=== PATIENT | female | born 1975 | race Hispanic/Latino ===

== ENCOUNTER 2023-08-28 19:27 | Emergency (ER) | payer OTHER, SELFPAY ==
--- NOTE | ~2023-08-28 | CT_ITS ---
EXAMINATION: CT abdomen pelvis w con DATE: 08/28/2023 21:00 INDICATION: luq pain TECHNIQUE: Computed tomography (CT) of the abdomen and pelvis was performed with 100 mL Omnipaque-350 intravenous contrast. Automated exposure control and iterative reconstruction technique were employe d. The dose-length product was 521.48 mGy-cm. COMPARISON: None. FINDINGS: Lower thorax: Unremarkable Liver: Normal. Biliary/Gallbladder: Gallbladder is normal. No bile duct dilation. Pancreas: No mass or duct dilation. Spleen: Normal. Adrenals:No mass. Kidneys: No suspicious mass, obstructing stone, or hydronephrosis. GI tract: Moderate distal esophageal edema. No small or large bowel dilation. Status post appendectom y. Mesentery/Peritoneum: No ascites, mass, or free air. Retroperitoneum: No mass. Pelvis: Normal urinary bladder. Normal ovaries. Multiple uterine fibroids. Soft Tissues: Soft tissues and body wall unremarkable. Bones: No acute osseous finding. IMPRESSION: Moderate esophagitis. Otherwise, no acute abdominopelvic process detected. Reviewed, dictated and finalized at location K. ORK ANNOUNCER
[2023-08-28 19:37] VITALS: BP 154/95; PULSE 75; RESP 16; TEMP 36.5; O2SAT 100
[2023-08-28 20:00] LABS: Basophils Absolute Auto 0.1 K/mm3 (0.0-0.1); Basophils Percent Auto 1.2 % (0.2-1.2); Eosinophils Absolute Auto 0.1 K/mm3 (0-0.3); Eosinophils Percent Auto 0.9 % (0-4.4); Hematocrit 34.2 % (37.0-47.0); Hemoglobin 10.6 g/dL (12.0-15.0); Immature Granulocyte Absolute 0.02 K/mm3 (0.00-0.031); Immature Granulocyte Percent A 0.2 % (0-0.5); Lymphocytes Absolute Auto 3.68 K/mm3 (0.9-3.2); Lymphocytes Percent Auto 42.4 % (18.3-44.2); Mean Corpuscular Hemoglobin 24.9 pg (26-34); Mean Corpuscular Volume 80.5 fl (80-100); Monocytes Absolute Auto 0.6 K/mm3 (0.1-0.6); Monocytes Percent Auto 6.5 % (2.6-8.5); Neutrophils Absolute Auto 4.2 K/mm3 (1.3-6.7); Neutrophils Percent Auto 48.8 % (45.5-73.1); Platelet Count Result 333 k/mm3 (150-375); Red Blood Count 4.25 M/mm3 (4.2-5.4); Red Cell Distribution Width 14.2 % (11.5-14.5); White Blood Count 8.7 K/mm3 (4.5-10.0)
[2023-08-28 20:13] LABS: Alanine Aminotransferase 26 U/L (6-35); Albumin Level 4.5 g/dL (3.5-5.1); Alkaline Phosphatase 65 U/L (38-126); Anion Gap 7 mmol/L (8-16); Aspartate Amino Transferase 26 U/L (14-36); Bilirubin,Total 0.2 mg/dL (0.2-1.3); Blood Urea Nitrogen 14 mg/dL (7-17); Calcium 9.2 mg/dL (8.4-10.2); Carbon Dioxide 28 mmol/L (22-30); Chloride 103 mmol/L (98-107); Estimated CRCL calculation 77 ml/min; Estimated Glomerular Filt Rate > 60; Glucose 121 mg/dL (65-110); Lipase 164 U/L (23-300); Potassium 3.5 mmol/L (3.4-5.0); Sodium 138 mmol/L (137-145)
[2023-08-28 20:19] LABS: Appearance Urine Cloudy (Clear); Bacteria Urine None Seen /hpf; Bilirubin Urine Negative (Negative); Blood Urine 2+ (Negative); Color Urine Yellow (Yellow); Glucose Urine UA Negative (Negative); Ketones Urine Negative (Negative); Leukocyte Esterase Ur Negative LEU/UL (Negative); Nitrate Urine Negative (Negative); Non Pathogenic Casts 0-2; Protein Urine Negative (Negative); RBC Urine 21-50 /hpf (0-2); Specific Grav Ur 1.012 (1.001-1.035); Squamous Epithelial Cell Urine Occasional /hpf (Few); Urobilinogen Urine 0.2 mg/dL (<2.0); WBC Urine 0-5 /hpf; pH Urine 8.5 (5.0-9.0)
[2023-08-28 20:21] LABS: Add Urine Microscopic? YES
--- NOTE | 2023-08-28 21:46 | ED.ABDPAIN ---
HPI - Abdominal Pain General Chief Complaint: Abdominal Pain Stated Complaint: Abdominal pain, thyroid in cancer Time Seen by Provider: 08/28/23 20:29 Source: patient and family Mode of arrival: ambulatory Limitations: no limitations History of Present Illness HPI narrative: 48-year-old with a history thyroid cancer, here with a complaint left upper quadrant pain for last several days. She denies any nausea or vomiting. Family reports her spleen was enlarged calcified thyroid cancer and they were worried what could be a rupture MD elicited complaint: abdominal pain Pertinent past history: none Onset (ago): week(s) (2) Pain Consistency: constant Location: LUQ Severity: moderate Quality: aching Radiation: none Migration to: no migration Exacerbating factors: nothing Relieving factors: nothing Associated symptoms: denies other symptoms Related Data Patient : No Allergies Allergy/AdvReac Type Severity Reaction Status Date / Time No Known Allergies Allergy Verified 08/28/23 19:45 Review of Systems Review of Systems: All systems reviewed & are unremarkable except as noted in HPI and below Constitutional: Constitutional: Reports no additional constitutional complaints Eyes: Eyes: Reports no additional eye complaints ENT: Reports system reviewed and no additional complaints, except as documented Cardiovascular: Cardiovascular: Reports no additional cardiovascular complaints Respiratory: Respiratory: Reports no additional respiratory complaints Gastrointestinal: Gastrointestinal: Reports as per HPI Genitourinary: Genitourinary: Reports no additional female genitourinary complaints Musculoskeletal: Musculoskeletal: Reports no additional musculoskeletal complaints Integumentary/Breasts: Skin/Breast: Reports system reviewed and no additional complaints, except as docu Neurologic: Reports system reviewed and no additional complaints, except as documented Exam Narrative: GENERAL: Well-appearing, well-nourished, and in no acute distress. HEAD: Normocephalic, atraumatic. EYES: PERRLA and EOMI. NECK: Supple. CHEST: Clear to auscultation. No respiratory distress. HEART: Regular rate and rhythm. No murmur heard. Normal peripheral pulses. ABDOMEN: Soft, tender in left upper quadrant, nondistended, normal active bowel sounds. EXTREMITIES: Normal range of motion. No edema. SKIN: Warm, dry, no rash. NEURO: No focal deficits. Alert and oriented x3. PSYCH: Normal mood and affect. Course Course Emergency Course: notified patient and the family about her lab work. Advised to take medication as prescribed, follow-up with the GI doctor Vital Signs Vital signs: Vital Signs Temperature 36.5 C 08/28/23 19:37 Pulse Rate 75 08/28/23 19:37 Respiratory Rate 16 08/28/23 19:37 Blood Pressure 154/95 H 08/28/23 19:37 Pulse Oximetry 100 08/28/23 19:37 Oxygen Delivery Room Air 08/28/23 19:37 Temperature 36.5 C 08/28/23 19:37 Pulse Rate 75 08/28/23 19:37 Respiratory Rate 16 08/28/23 19:37 Blood Pressure 154/95 H 08/28/23 19:37 Pulse Oximetry 100 08/28/23 19:37 Oxygen Delivery Room Air 08/28/23 19:37 MDM - Abdominal Pain Differential Diagnosis Differential diagnosis: Likely abdominal pain, constipation, diverticulitis, pancreatitis and small bowel obstruction Medical Records Attestation: I reviewed the patient's medical records. Lab Data 08/28/23 19:53 08/28/23 19:53 Labs: Lab Results 08/28/23 Range/Units 19:53 WBC 8.7 (4.5-10.0) K/mm3 RBC 4.25 (4.2-5.4) M/mm3 Hgb 10.6 L (12.0-15.0) g/dL Hct 34.2 L (37.0-47.0) % MCV 80.5 (80-100) fl MCH 24.9 L (26-34) pg MCHC 31.0 L (32-36) g/dl RDW 14.2 (11.5-14.5) % Plt Count 333 (150-375) k/mm3 MPV 10.0 (7.4-10.4) fl Immature Gran % (Auto) 0.2 (0-0.5) % Neut % (Auto) 48.8 (45.5-73.1) % Lymph % (Auto) 42.4 (18.3-44.2) % [place] % (Auto) 6.5 (2.6-8
[2023-08-28] MEDS: FAMOTIDINE 20 MG/2 ML VIAL IV PUSH (21:57)
[2023-08-28] MEDS: MORPHINE SULFATE (*CRX) 4 MG/ML INJ IV PUSH (21:57)
[2023-08-28] MEDS: ONDANSETRON INJ 4 MG/2 ML VIAL IV PUSH (21:57)
[2023-08-28 22:08] VITALS: BP 145/86; PULSE 70; RESP 17; O2SAT 100
== END 2023-08-28 22:12 | disposition home or self-care (01) ==
PROVIDERS: Emergency Medicine; Emergency Provider Family Medicine
DX: K20.90 Esophagitis, unspecified without bleeding (principal); Z85.850 Personal history of malignant neoplasm of thyroid
CPT/HCPCS: 36415; 74177; 80053; 81001; 81025; 83690; 85025; 96374; 96375; 99284; J2270; J2405; Q9967

== ENCOUNTER 2025-04-03 12:46 | Emergency (ER) | payer SELFPAY ==
--- OUTSIDE RECORDS SUMMARY | 2020-06-21 07:25 | XMS_ITS | Continuity of Care Document ---
Author Organization [facility] Address [address] [place] [address] Phone Care Team Providers Care Tire Trimmer Hand Name Role Phone Unavailable Unavailable Unavailable Advance Directives Directive Yes / No Effective Date File Name No Information Encounters Encounter Description Practice Location Reason(s) For Visit Diagnoses Date Provider Providers Copied on Encounter [facility] , [address], [place], [place], [id number], [place] tel:[phone] [facility] On [facility] No Information No Information Family History Family Member Type Diagnosis Age At Onset No Information Payers Payer name Insurance type Covered libertarian ID Authoriza tion(s) No Information Social History Type Description Quantity Date Captured Comments Sex Female Smoking Status No Information Chief Complaint And Reason For Visit No Information Reason For Referral Reason For Referral No Information History Of Present Illness Encounter Date Complaint History Of Prese nt Illness No Information Functional Status Date Functional Assessmen t No Information Instructions Date Instruction Additional Infor mation No Information Assessments Type Assessment Date No Information Patient Care Teams Name Effective Dates (start - stop) Status Members No Information
--- NOTE | ~2025-04-03 | CT_ITS ---
EXAMINATION: CT lumbar spine wo con DATE: 04/03/2025 14:24 INDICATION: Low back pain TECHNIQUE: Computed tomography (CT) of the lumbar spine was performed without intravenous contrast. The dose-length product was 478.61 mGy-cm. Automated exposure control and iterative reconstruction technique were employed. COMPARISON: None FINDINGS: Normal lumbar alignment. Vertebral bodies and disc heights are preserved. Mild dextrocurvature of the lumbar spine. No focal lytic or blastic lesions. There is mild facet degenerative change at L5-S1. No significant paraspinal soft tissue abnormality. There are changes of appendectomy. No sig nificant spinal stenosis. IMPRESSION: 1. No acute abnormality of the lumbar spine. Reviewed, dictated and finalized at location O.
[2025-04-03 12:51] VITALS: BP 147/101; PULSE 77; RESP 18; TEMP 36.9; O2SAT 100
--- NOTE | 2025-04-03 13:35 | ED_ITS ---
HPI - Back Pain/Injury General Chief Complaint: Extremity Problem,Nontraumatic Stated Complaint: bilateral hip pain, radiates down legs Time Seen by Provider: 04/03/25 12:51 History of Present Illness HPI Narrative: Patient is a 49-year-old female who presents to the ER with left-sided back pain that radiates down her left thigh. She reports the pain started on , 1 week ago. Patient denies any saddle anesthesia, loss of continence, or urinary symptoms. She endorses a history of thyroid cancer x2 in fibromyalgia. Patient denies any recent back injury. She endorses tingling in her left thigh and pain radiating around her left hip. Related Data Allergies Allergy/AdvReac Type Severity Reaction Status Date / Time aspirin AdvReac Intermediate Vomiting Verified 04/03/25 12:54 Review of Systems Review of Systems: All systems reviewed & are unremarkable except as noted in HPI and below Exam Narrative: GENERAL: Well appearing, well-nourished, non-toxic, in no acute distress. HEAD: Normocephalic, atraumatic. NECK: Supple. No adenopathy, no masses. RESPIRATORY: Airway patent, respirations nonlabored. Clear to auscultation bilaterally, no rales, rhonchi, wheezing. CARDIOVASCULAR: Regular rate and rhythm without murmurs, rubs, or gallops. Peripheral pulses 2+ and equal bilaterally. -CVA tenderness ABDOMINAL: Soft, nontender, nondistended, no hepatosplenomegaly. Normoactive BS. MUSCULOSKELETAL: Moves all extremities. Strength/ROM intact without gross deformities. + straight leg test SKIN: Warm, dry, normal color. No rashes. NEURO: A&O X3. Speech clear. Cranial nerves II-XII intact. No ataxic movements. PSYCHIATRIC: Appropriate mood and affect. Normal interaction. Course Vital Signs Vital signs: Vital Signs Temperature 36.9 C 04/03/25 12:51 Pulse Rate 77 04/03/25 12:51 Respiratory Rate 18 04/03/25 12:51 Blood Pressure 147/101 H 04/03/25 12:51 Pulse Oximetry 100 04/03/25 12:51 Temperature 36.9 C 04/03/25 12:51 Pulse Rate 77 04/03/25 12:51 Respiratory Rate 18 04/03/25 12:51 Blood Pressure 147/101 H 04/03/25 12:51 Pulse Oximetry 100 04/03/25 12:51 MDM - Back Pain/Injury MDM Narrative Medical decision making narrative: Patient is a 49-year-old female who presents to the ER with left-sided back pain that radiates down her left thigh. She reports the pain started on , 1 week ago. Patient denies any saddle anesthesia, loss of continence, or urinary symptoms. She endorses a history of thyroid cancer x2 in fibromyalgia. Patient denies any recent back injury. She endorses tingling in her left thigh and pain radiating around her left hip. Labs Ordered: UA Imaging Ordered: CT lumbar spine Medications Ordered: Prednisone 40 mg p.o., Toradol 60 mg IM, Bactrim p.o. Results: Patient's CT scan indicates No acute abnormality of the lumbar spine. Diagnosis: Urinary tract infection, sciatica Patient Education/Shared MDM: Results of lab work and imaging shared with francis ent. She endorses improvement of symptoms following medication administration. Patient strongly advised to maintain hydration status upon discharge and follow- up with her PCP as soon as possible. She will be discharged home with a prescription for Bactrim and lidocaine. Strict return precautions provided. Patient verbalized understanding and is in agreement with plan. Vital signs stable at time of discharge. All questions answered. Differential Diagnosis Differential diagnosis: Likely lumbar radiculopathy, sciatica, strain of lumbar region and other (Urinary tract infection) Lab Data Attestation: I reviewed the patient's lab results. Labs: Lab Results 04/03/25 Range/Units 14:08 Urine Color Yellow (Yellow) Urine Appearance Cloudy H (Clear) Urine pH 6.5 (5.0-9.0) Ur Specific [place] 1.011 (1.001-1.035) Urine Protein Negative (Negative) mg/dL Urine Glucose (UA) Negative (Negative) mg/dL Urine Ketones Negative (Negative) mg/dL Ur Blood (Man) 2+ H (Negative) Urine Nitrate Negative (Negative) Urine Bilirubin Negative (Negative) Urine Urobilinogen 0.2 (<2.0) mg/dL Leukocyte Esterase Rfl 3+ H (Negative) BAYRON/UL Urine RBC 3-5 H (0-2) /hpf Urine WBC 51-100 H (0-3) /hpf Ur Squamous Epith Cells Occasional (Few) /hpf Urine Bacteria 1+ H /hpf Urine Casts 0-2 Imaging Data Attestation: I personally reviewed and interpreted this imaging study as follows: Radiologist's impression: Impressions Lumbar Spine CT 04/03/25 14:32 IMPRESSION: 1. No acute abnormality of the lumbar spine. Discharge Plan Discharge Clinical Impression: Sciatica of left side, Urinary tract infection Patient Disposition: Home Condition: Stable Instructions: Antibiotic Form, Urinary Tract Infection in Women (ED), Lower Back Exercises (ED) Additional Instructions: Please return to the ER with any worsening symptoms. Follow-up with primary care provider as soon as possible. Take all medications as prescribed, including regularly scheduled medications. Complete your full dose of antibiotics. You may use lidocaine patches, Tylenol and ibuprofen for pain relief. Patient Language: Urdu Prescriptions: New lidocaine 5 % adhesive patch,medicated 2 patch topical DAILY Qty: 30 0RF Rx Instructions: leave on most painful area for up to 12 hrs ibuprofen 800 mg tablet 800 mg PO TID Qty: 20 0RF prednisone 50 mg tablet 50 mg PO DAILY Qty: 5 0RF sulfamethoxazole-trimethoprim [Bactrim DS] 800-160 mg tablet 1 tablet PO Q12H 5 Days Qty: 10 0RF No Action esomeprazole magnesium [Nexium] 40 mg capsule,delayed release(DR/EC) 40 mg PO DAILY Qty: 30 0RF hydrocodone-acetaminophen 5-325 mg tablet 1 tablet PO Q8H PRN (Reason: pain) Qty: 14 0RF Follow-up/Referrals: Eamon Rowland MD [Physician, Family Practice] Referral Note: primary care provider UNKNOWN,DOCTOR [Primary Care Provider] Time of Disposition: 15:42
[2025-04-03] MEDS: KETOROLAC (*BKC) 60 MG/2 ML VIAL IM (13:56)
--- OUTSIDE RECORDS SUMMARY | 2025-04-03 14:23 | XMS_ITS | Continuity of Care Document ---
Author Name Dmitry Souza Address [address] [place], [place] [id number] [place] [address] Organization Unknown Address [address] [place] [address] Medications No known medications Problems No known problems
--- OUTSIDE RECORDS SUMMARY | 2025-04-03 14:24 | XMS_ITS | Encounter Summary ---
Author Organization [facility] Address [address] [place] [address] Phone Care Team Providers Care Art Class Model Name Role Phone Chris Hebert MD Unavailable [phone] Moustapha Restrepo MD Primary Care Provider Connie Castro MD Unavailable Dorys Gunter MD Unavailable Stephan Hinton DO Unavailable [phone] Aram Lo MD Unavailable Kate Poole NP Unavailable Virgil Riddle MD Unavailable Johana Uribe MD PhD Unavailable Luis Krause MD Unavailable [phone] Encounter Details Date Type Department Care Team (Late st Contact Info) Description 10/12/2018 Social Work 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 Gender Identity Not on file Sexual Orientation Straight 05/07/2024 1: 18 PM CDT documented as of this encounter Plan of Treatment Not on file documented as of this encounter Visit Diagnoses Not on filedocumented in this encounter Care Teams Art Class Model Relationship Specialty Start Date End Date Moustapha Restrepo MD [address] [place] [address] PCP - General Internal Medicine 06/13/18 Chris Hebert MD [address] [place] [address] Consulting Physician Medical Oncology 07/23/17 04/13/21 [place] [address] [address] Consulting Physician Endocrinology Diabetes & Metabolism 01/20/19 06/11/19 [place] [address] [address] Consulting Physician Radiation Oncology 01/20/19 [place] [address] [address] Surgeon Otolaryngology 01/20/19 06/11/19 [place] [address] [address] Consulting Physician Gastroenterology 01/20/19 [place] [address] [place] [id number] Nurse Practitioner Otolaryngology 06/12/19 04/14/21 [place] [address] [address] Consulting Physician Otolaryngology 10/12/20 02/19/22 [place]ribe [place] PhD [address] [id number] Medical Oncologist/Hematologi st Medical Oncology 04/14/21 03/14/22 [place] [address] [address] Consulting Physician Radiation Oncology 04/14/21 documented as of this encounter
--- OUTSIDE RECORDS SUMMARY | 2025-04-03 14:24 | XMS_ITS | Encounter Summary ---
Author Organization [facility] Address [address] [place] [address] Phone Care Team Providers Care Roofer Apprentice Name Role Phone Chris Hebert MD Unavailable [phone] Moustapha Restrepo MD Primary Care Provider Moustapha Restrepo MD Primary Care Provider [phone] Connie Castro MD Unavailable Dorys Gunter MD Unavailable Stephan Hinton DO Unavailable Aram Lo MD Unavailable [phone] Kate Poole NP Unavailable Virgil Riddle MD Unavailable Johana Uribe MD PhD Unavailable [phone] Luis Krause MD Unavailable [phone] Encounter Details Date Type Department Care Team (Late st Contact Info) Description 01/03/2018 Social Work [facility] Oncology [address] [address] Stacey Judd, [address] 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 Sex: female (home) Address: [address] [place], [place] [id number] PCP: Moustapha Restrepo Received a call from [employer] reporting they need an updated application for the patient. Per rep, the initial application was denied due to incorrect primary diagnosis. SW updated and corrected application and sent to [employer]. I will remain available to assist as needed. MEL Holliday documented in this encounter Plan of Treatment Not on file documented as of this encounter Visit Diagnoses Not on filedocumented in this encounter Care Teams Roofer Apprentice Relationship Specialty Start Date End Date Moustapha Restrepo MD [address] [place] [address] PCP - General Internal Medicine 11/23/17 06/12/18 Moustapha Restrepo MD [address] [place] [address] PCP - General Internal Medicine 06/13/18 Chris Hebert MD [address] [place] [address] Consulting Physician Medical Oncology 07/23/17 04/13/21 [place] [address] [address] Consulting Physician Endocrinology Diabetes & Metabolism 01/20/19 06/11/19 [place] [address] [address] Consulting Physician Radiation Oncology 01/20/19 [place] [address] [address] Surgeon Otolaryngology 01/20/19 06/11/19 [place] [address] [address] Consulting Physician Gastroenterology 01/20/19 Kate Poole, VIJAYA [address] [address] Nurse Practitioner Otolaryngology 06/12/19 04/14/21 [place] [address] [address] Consulting Physician Otolaryngology 10/12/20 02/19/22 Johana Uribe [place] PhD [address] [address] Medical Oncologist/Hematologi st Medical Oncology 04/14/21 03/14/22 [place] [address] [place] [address] Consulting Physician Radiation Oncology 04/14/21 documented as of this encounter
--- OUTSIDE RECORDS SUMMARY | 2025-04-03 14:24 | XMS_ITS | Encounter Summary ---
Author Organization [facility] Address [address] [place] [address] Care Team Providers Care Size Changer Name Role Phone Moustapha Restrepo MD Primary Care Provider [phone] Aram Lo MD Unavailable [phone] Encounter Details Date Type Department Care Team (Late st Contact Info) Description 05/16/2024 Orders Only [facility] Information Management [address] [place] [address] Scanning, Provider Social History Tobacco Use Types Packs/Day Years Used Date Smoking Tobacco: Never Smokeless Tobacco: Never Alcohol Use Standard Drinks/Week Comments No 0 (1 standard drink = 0.6 oz pur e alcohol) AUDIT-C Answer Date Recorded Q1: How often do you have a drink containing alcohol? Never 05/07/2024 Q2: How many drinks containi ng alcohol do you have on a typical day when you are drinking? Patient does not drink Q3: How often do you have si x or more drinks on one occasion? Never 05/07/2024 PHQ-2 Answer Date Recorded PHQ-2 Total Score (If total score is 3 or more points, staff should administer the PHQ-9) 0 05/07/2024 Hunger Vital Sign Answer Date Recorded Within the past 12 months, y ou worried that your food would run out before you got the money to buy more. Never true 04/27/20 23 Within the past 12 months, t he food you bought just didn't last and you didn't have money to get more. Never true 11/17/2022 PHQ-9 Answer Date Recorded PHQ-9 Total Score 0 05/07/2024 Personal Safety Answer Date Recorded Have you ever been in or are you currently in a harmful physical or emotional relationship or is someone making you feel afraid or unsafe? 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 Gender Identity Not on file Sexual Orientation Straight 05/07/2024 1: 18 PM CDT documented as of this encounter Plan of Treatment Not on file documented as of this encounter Procedures Procedure Name Priority Date/Time Associated Diagnosis Comments SCAN - OTHER ORDERS 05/16/2024 documented in this encounter Results * SCAN - OTHER ORDERS (05/16/2024) us Provider Scanning Final Result documented in this encounter Visit Diagnoses Not on filedocumented in this encounter Care Teams Size Changer Relationship Specialty Start Date End Date Moustapha Restrepo MD [address] [place] [address] PCP - General Internal Medicine 06/13/18 Aram Lo MD [address] [place] [address] Consulting Physician Gastroenterology 01/20/19 documented as of this encounter
--- OUTSIDE RECORDS SUMMARY | 2025-04-03 14:24 | XMS_ITS | Encounter Summary ---
Author Organization [facility] Address [address] [place] [address] Phone Care Team Providers Care Chief Catalyst Operator Name Role Phone Chris Hebert MD Unavailable [phone] Moustapha Restrepo MD Primary Care Provider Moustapha Restrepo MD Primary Care Provider Connie Castro MD Unavailable Dorys Gunter MD Unavailable Stephan Hinton DO Unavailable Aram Lo MD Unavailable Kate Poole NP Unavailable Virgil Riddle MD Unavailable Johana Uribe MD PhD Unavailable Luis Krause MD Unavailable [phone] Encounter Details Date Type Department Care Team (Late st Contact Info) Description 06/05/2018 Social Work [facility] Oncology [address] [facility] [address] [place] [address] Stacey Judd, [address] 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 Sex: female (home) Address: [address] [place], [place] [address] PCP: Moustapha Restrepo chute worker followed up to determine if patient is still on Rituxan to determine if she will needto renew her medication assistance. I will remain available to assist as needed. MEL Holliday AGENT documented in this encounter Plan of Treatment Not on file documented as of this encounter Visit Diagnoses Not on filedocumented in this encounter Care Teams Chief Catalyst Operator Relationship Specialty Start Date End Date Moustapha Restrepo MD [address] [place] [address] PCP - General Internal Medicine 11/23/17 06/12/18 Moustapha Restrepo MD [address] [place] [address] PCP - General Internal Medicine 06/13/18 Chris Hebert MD [address] [place] [address] Consulting Physician Medical Oncology 07/23/17 04/13/21 [place] [address] [address] Consulting Physician Endocrinology Diabetes & Metabolism 01/20/19 06/11/19 [place] [address] [address] Consulting Physician Radiation Oncology 01/20/19 [place] [address] [address] Surgeon Otolaryngology 01/20/19 06/11/19 [place] [address] [address] Consulting Physician Gastroenterology 01/20/19 Kate Poole, VIJAYA [address] [place] [address] Nurse Practitioner Otolaryngology 06/12/19 04/14/21 [place] [address] [address] Consulting Physician Otolaryngology 10/12/20 02/19/22 [place] [address] [address] Medical Oncologist/Hematologi st Medical Oncology 04/14/21 03/14/22 [place] [address] [address] Consulting Physician Radiation Oncology 04/14/21 documented as of this encounter
--- OUTSIDE RECORDS SUMMARY | 2025-04-03 14:24 | XMS_ITS | Clinical Summary ---
Author Organization [facility] Address [address] [place] [id number] Care Team Providers Care Billing Control Clerk Name Role Phone Moustapha Restrepo MD Primary Care Provider [phone] Aram Lo MD Unavailable [phone] Allergies No known active allergies Medications SUMAtriptan (IMITREX) 50 mg tablet TAKE ONE TABLET BY MOUTH AT START OF HEADACHE MAY REPEAT ONCE IN 2 HOURS NO MORE THAN 2 TABS IN ONE DAY 1 Active sulfamethoxazole-tr imethoprim (BACTRIM DS) 800-160 mg per tablet Take 1 tablet by mouth 2 (two) times a day 3 Active acetaminophen (TYLENOL) 500 mg tablet Take 1 tablet (500 mg total) by mouth every 6 (six) hours as needed for pain Active pregabalin (LYRICA) 75 mg capsuleIndications: Postoperative hypothyroidism Take 1 capsule (75 mg total) by mouth 2 (two) times a day 60 capsule 4 4 Active levothyroxine (SYNTHROID) 150 mcg tablet Take 1 tablet (150 mcg total) by mouth daily 90 tablet 3 4 Active Active Problems Problem Noted Date Diagnosed Date History of thyroid cancer 05/07/2024 Assessment & Plan (05/07/2024 1:52 PM CDT): Without any evidence of recurrent Update tumor marker with TG Paralabral cyst of shoulder, right, initial enco unter 02/10/2023 Iron deficiency anemia 04/29/2020 Overview (04/29/2020): Added automatically from request for surgery [id number] Epistaxis 02/15/2019 Assessment & Plan (02/15/2019 12:55 PM CDT): Patient was noted to have a benign-appearing sore along the inferior edge of her right inferior turbinate. Silver nitrate cautery was performed today. Bleeding stopped. Nasal hygiene care instructions were discussed with the patient and her daughter. Patient can follow back up as needed. Enlarged lymph node in neck 06/01/2018 Immune thrombocytopenic purpura 01/04/2018 Rectal bleeding 09/10/2017 Assessment & Plan (09/10/2017 6:19 PM METAL HARDENER): Symptomatic. May be due to hemorrhoids vs tumor. Less likely colitis. Plan: Check CBC, CMP. Colonoscopy is recommended. The procedure risks including, but not limited to perforation infection bleeding and anesthetic complications were discussed and the patient verbalized understanding and agreed to proceed. Left upper quadrant pain 09/10/2017 Assessment & Plan (04/30/2020 6:58 AM CDT): Moderately severe. Associated with tenderness. Differential diagnosis includes peptic ulcer disease or intra-abdominal inflammatory process. Plan CT abdomen pelvis. Esophagogastroduodenoscopy recommended. Assessment & Plan (09/10/2017 6:24 PM METAL HARDENER): Symptomatic. She history of fibromyalgia and thyroid cancer. May be due to PUD. Erosive Esophagitis is a possibility as well. Plan EGD recommended for further evaluation. Abnormal laboratory test 07/22/2017 Fibromyalgia 07/22/2017 Assessment & Plan (05/07/2024 1:53 PM CDT): Chronic, stable. Continue pregabalin 75 mg twice a day Assessment & Plan (07/22/2017 3:56 PM METAL HARDENER): Continue Elavil Hypothyroidism 07/22/2017 Assessment & Plan (05/07/2024 1:51 PM CDT): Chronic, stable Importance of taking the medication on an empty stomach was discussed with the patient Update TSH Continue levothyroxine 150 mcg Assessment & Plan (04/19/2023 6:07 PM CDT): Chronic, controlled Will update TFTs Will adjust dose of levothyroxine if indicated, to keep TSH around 0.5 to 1.5 Assessment & Plan (04/18/2022 12:38 PM CDT): I have requested TFTs today and will adjust dose of the levothyroxine trying to keep the TSH around 0.5 Assessment & Plan (07/05/2021 12:56 PM METAL HARDENER): Thyroid function tests, including TSH and free T4 were requested Will adjust dose of Levothyroxine accordingly . If there is a need to make changes, will recheck levels in 2-3 months. Instructions to patient on taking medication properly : in the morning, on an empty stomach , 1 h part from food and/or other meds. Assessment & Plan (08/27/2018 4:15 PM METAL HARDENER): Will check TSH and free T4 Will adjust dose of Levothyroxine accordingly . If there is a need to make changes, will recheck levels in 2-3 months. Instructions to patient on taking medication properly : in the morning, on an empty stomach , 1 h part from food and/or other meds. If any doses are missed, can take 2-3 tab together ,to make up for the missed dose; make sure at the end to the week, 7 tabs have been taken. Assessment & Plan (05/09/2018 12:00 PM CDT): Will check TSH and free T4 Will adjust dose of Levothyroxine accordingly . If there is a need to make changes, will recheck levels in 2-3 months. Instructions to patient on taking medication properly : in the morning, on an empty stomach , 1 h part from food and/or other meds. If any doses are missed, can take 2-3 tab together ,to make up for the missed dose; make sure at the end to the week, 7 tabs have been taken. Assessment & Plan (11/01/2017 9:46 AM CDT): Will check TSH and free T4 Will adjust dose of Levothyroxine accordingly . If there is a need to make changes, will recheck levels in 2-3 months. Instructions to patient on taking medication properly : in the morning, on an empty stomach , 1 h part from food and/or other meds. If any doses are missed, can take 2-3 tab together ,to make up for the missed dose; make sure at the end to the week, 7 tabs have been taken. Assessment & Plan (07/22/2017 3:56 PM METAL HARDENER): Continue Synthroid Thrombocytopenia 07/22/2017 Assessment & Plan (07/22/2017 3:58 PM METAL HARDENER): Unknown etiology Hepatitis panel negative CBC, CMP within normal limits aside from a platelet level HIV negative Direct Gloria negative Beta HCG negative Will check a vitamin B12, folate level Hematology on consult No active signs of bleeding Thyroid cancer (CMS/HCC) 07/24/2013 Overview (05/04/2021): Keep TSH around 0.5 Monitor TG Will request neck ultrasound. Left hemithyroidectomy March 11, 2015. Completed right thyroidectomy March 2015. Radioactive iodine 131 ablation: May 12, 2015, with repeat June 02, 2016. Assessment & Plan (04/19/2023 6:07 PM CDT): Continue monitoring with thyroglobulin CT of the neck requested Assessment & Plan (04/18/2022 12:39 PM CDT): I looked at her thyroid under ultrasound machine with some remnant of tissue in the left side. I have requested to repeat thyroid ultrasound by Radiology but my sense at this moment there is no evidence whatsoever of a recurrent, with a persisntely undetectable TG Assessment & Plan (07/05/2021 12:56 PM METAL HARDENER): No evidence of recurrence, as per last thyroid ultrasound done to a few weeks. 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 Patient has a nonmeasurable thyroglobulin level. Patient's TSH level needs to be more adequately suppressed. Recommend TSH: 0.5 range. Patient is exhibiting no clinical or radiographic evidence of recurrent disease. Assessment & Plan (05/09/2018 12:00 PM CDT): Keep TSH around 0.5 Monitor TG Will request neck ultrasound. KIMBERLEY (iron deficiency anemia) Assessment & Plan (04/30/2020 6:50 AM CDT): Chronic. Previous endoscopy and colonoscopy did not reveal source of bleeding. It is doubtful that the blood loss is from hemorrhoids only. She does have left upper quadrant abdominal pain and tenderness which raises the possibility of peptic ulcer disease. She also may have small-bowel lesions causing the iron-deficiency anemia. Will recommend Esophagogastroduodenoscopy, colonoscopy and small-bowel capsule endoscopy. History of ITP Erosive esophagitis Internal hemorrhoid Assessment & Plan (04/30/2020 6:47 AM CDT): Intermittently symptomatic with protrusion and minimal bleeding. She is requesting referral to surgeon. However will repeat colonoscopy and evaluate the severity and size of the lesion before referral to the surgeon if needed. She is advised to continue Sitz baths and preparation H suppositories as needed. Immunizations Immunization Administration Dates Next Due HiB 09/22/2017 Hib (PRP-OMP) 09/22/2017 Influenza, Quadrivalent, Sahra l Culture-based MDCK, Preservative Free, Antibiotic Free, Intramuscular 06/12/2019,06/01/2018 Meningococcal Polysaccharide (Menomune) 09/23/19 18 Pfizer SARS-CoV-2 Monovalent Vaccination (12+ Yrs) PURPLE 10/01/2020 Pneumococcal Conjugate PCV 13 08/04/2017 Pneumococcal Polysaccharide PPV23 11/07/2017,08/2014 Surgical History Surgery Date Site/Laterality Comments APPENDECTOMY Appendectomy THYROID SURGERY TUBAL LIGATION 07/24/2003 - 07/23/2004 TONSILLECTOMY UPPER GASTROINTESTINAL ENDOSCOPY COLONOSCOPY 07/24/2017 - 07/23/2018 1st screen COLONOSCOPY 05/14/2020 anemia Medical History Medical History Date Comments Hx Other Medical left hemithyroi dectomy; Comments: EMB 03/11/2015 - Hx Other Medical 04/07/2015 completion righ t thyroidectomy; Comments: EMB 04/16/2015 - Fibromyalgia Thyroid cancer (HCC) 2013 Anemia Hypothyroidism GERD (gastroesophageal reflux disease) Kidney insufficiency hx of 11 ye ars ago KIMBERLEY (iron deficiency anemia) History of ITP Erosive esophagitis Internal hemorrhoid History of radiation therapy 201 6-17 Hypertension PONV (postoperative nausea a nd vomiting) Family History Medical History Relation Name Comments Cirrhosis Father Cirrhosis; Cancer Mother Other Mother stomach; Relation Name Status Comments Father Mother Alive Social History Tobacco Use Types Packs/Day Years Used Date Smoking Tobacco: Never Smokeless Tobacco: Never Tobacco Cessation:Counseling Given: Not Answered Alcohol Use Standard Drinks/Week Comments No 0 (1 standard drink = 0.6 oz pur e alcohol) AUDIT-C Answer Date Recorded Q1: How often do you have a drink containing alcohol? Never 06/28/2024 Q2: How many drinks containi ng alcohol do you have on a typical day when you are drinking? Patient does not drink Q3: How often do you have si x or more drinks on one occasion? Never 06/28/2024 PHQ-2 Answer Date Recorded PHQ-2 Total Score (If total score is 3 or more points, staff should administer the PHQ-9) 0 05/07/2024 Hunger Vital Sign Answer Date Recorded Within the past 12 months, y ou worried that your food would run out before you got the money to buy more. Never true 06/28/20 24 Within the past 12 months, t he food you bought just didn't last and you didn't have money to get more. Never true 06/28/2024 PHQ-9 Answer Date Recorded PHQ-9 Total Score 0 05/07/2024 Personal Safety Answer Date Recorded Have you ever been in or are you currently in a harmful physical or emotional relationship or is someone making you feel afraid or unsafe? Denies 03/10/2023 Comments No Sex and Gender Information Value Date Recorded Sex Assigned at Not on file Legal Sex Female 3:44 AM METAL HARDENER Gender Identity Not on file Sexual Orientation Straight 05/07/2024 1: 18 PM CDT Obstetrics History Para Term AB IAB SAB Ectopic Multiple Livin g Live Births 4 2 2 0 0 0 0 0 0 0 0 Date Outcome GA Total Labor Labor/2nd/3rd Weight Sex Type Anes PTL Estefanía A1 A5 Name Clin Term Term Last Filed Vital Signs Vital Sign Reading Time Taken Comments Blood Pressure 146/85 06/28/2024 8:53 AM METAL HARDENER Pulse 80 06/28/2024 8:53 AM METAL HARDENER Temperature 36.8 C (98.2 F) 06/04/2024 3:21 PM METAL HARDENER Respiratory Rate 17 05/07/2024 1:20 PM CDT Oxygen Saturation 100% 06/28/2024 8:53 AM METAL HARDENER Inhaled Oxygen Concentration - - Weight 79.4 kg (175 lb 1.6 oz) 06/04/2024 3:21 P M METAL HARDENER Height 165.1 cm (5' 5) 06/04/2024 3:21 PM METAL HARDENER Body Mass Index 29.14 06/04/2024 3:21 PM METAL HARDENER Plan of Treatment Health Maintenance Due Date Last Done Comments Cervical Cancer Screening 1975 DTaP/Tdap/Td Vaccine (1 - Tdap) 1985 Hepatitis B Screening 1992 Regular Well Visit/Exam 18-64 1992 Covid-19 Vaccine (2 - season) 2024 10/01/2020 Zoster Vaccine (1 of 2) 2024 Influenza Vaccine (#1) 2025 06/12/2019, 2017 Depression Screening 05/07/2025 05/07/2024, 05/07/2024, 04/28/2020, Additional history exists Breast Cancer Screening-Mammogram 06/17/2025 06/17/2024, 10/19/2022, 08/18/2021, Additional history exists Colon Cancer Screening-Colonoscopy 05/14/2030 05/14/2020, 10/02/2017 Hepatitis C Screening Completed 07/21/2017 Pneumococcal vaccine <65 Aged Out 018, 08/04/2017, 01/22/2015 No longer eligible based on patient's age to complete this topic Procedures Procedure Name Priority Date/Time Associated Diagnosis Comments DIAGNOSTIC MAMMOGRAM BILATERAL W JARETT Schedule Routine, Read Routine (OP Routine) 06/17/2024 3:22 PM METAL HARDENER Mass of left breast, unspecified quadrant COLONOSCOPY 05/14/2020 10:55 AM CDT HEPATITIS PANEL, ACUTE Routine 07/21/2017 11:09 AM METAL HARDENER from Last 3 Months or Most Recently Relevant to Health Maintenance Results * Diagnostic Mammogram Bilateral W Jarett (06/17/2024 3:22 PM METAL HARDENER) Anatomical Region Laterality Modality Breast Bilateral Mammography 06/17/2024 4:23 PM METAL HARDENER Impressions 06/17/2024 4:23 PM METAL HARDENER 1. No evidence of malignancy in either breast. 2. No sonographic correlate for area of clinical concern in the left axilla. In the absence of imaging findings, any decision for further intervention should be based on the clinical assessment. OVERALL FINAL ASSESSMENT: BI-RADS Category 1: Negative. RECOMMENDATION: 1. Annual screening mammography is recommended. 2. Clinical follow-up is recommended. Electronically signed by: Leticia Alvarado M.D. Narrative 06/17/2024 4:23 PM METAL HARDENER EXAMINATION: BILATERAL DIGITAL DIAGNOSTIC MAMMOGRAM INCLUDING CAD AND BILATERAL DIGITAL BREAST TOMOSYNTHESIS; LEFT AXILLARY SONOGRAM HISTORY: 48-year-old woman presents with focal left axillary pain. COMPARISON: 10/19/2022 and priors dating back to 2018 TECHNIQUE: Full field digital mammographic views of BOTH breasts were performed, including computer aided detection (CAD) and BILATERAL digital breast tomosynthesis (DBT). Directed ultrasound evaluation of the LEFT axilla was performed by a trained compound mixer and Dr. Alvarado. BREAST PARENCHYMAL COMPOSITION: There are scattered areas of fibroglandular density. MAMMOGRAM FINDINGS: There is no new suspicious abnormality within EITHER breast; the appearance of BOTH breasts is stable compared to prior exams. SONOGRAM FINDINGS: Targeted sonographic images in the left axilla in the region of pain demonstrates no suspicious cystic or solid mass or lymphadenopathy. Procedure Note Leticia Alvarado MD - 06/17/2024 EXAMINATION: BILATERAL DIGITAL DIAGNOSTIC MAMMOGRAM INCLUDING CAD AND BILATERAL DIGITAL BREAST TOMOSYNTHESIS; LEFT AXILLARY SONOGRAM HISTORY: 48-year-old woman presents with focal left axillary pain. COMPARISON: 10/19/2022 and priors dating back to 2018 TECHNIQUE: Full field digital mammographic views of BOTH breasts were performed, including computer aided detection (CAD) and BILATERAL digital breast tomosynthesis (DBT). Directed ultrasound evaluation of the LEFT axilla was performed by a trained compound mixer and Dr. Alvarado. BREAST PARENCHYMAL COMPOSITION: There are scattered areas of fibroglandular density. MAMMOGRAM FINDINGS: There is no new suspicious abnormality within EITHER breast; the appearance of BOTH breasts is stable compared to prior exams. SONOGRAM FINDINGS: Targeted sonographic images in the left axilla in the region of pain demonstrates no suspicious cystic or solid mass or lymphadenopathy. IMPRESSION: 1. No evidence of malignancy in either breast. 2. No sonographic correlate for area of clinical concern in the left axilla. In the absence of imaging findings, any decision for further intervention should be based on the clinical assessment. OVERALL FINAL ASSESSMENT: BI-RADS Category 1: Negative. RECOMMENDATION: 1. Annual screening mammography is recommended. 2. Clinical follow-up is recommended. Electronically signed by: Leticia Alvarado M.D. us Self Referral IMG MAMMO PROCEDURES Final Resul t * COLONOSCOPY (05/14/2020 10:55 AM CDT) Anatomical Region Laterality Modality Other Narrative Procedure Note Aram Lo MD - 05/14/2020 10:55 AM CDT [facility] Patient Name: Dannielle Arora Procedure Date: 05/14/2020 10:55AM Date of : 1975 Admit Type: Outpatient Age: 44 Gender: Female Note Status: Finalized Attending MD: Aram Lo M.D. Procedure Date: 05/14/2020 Procedure: Colonoscopy Indications: Iron deficiency anemia Providers: Aram Lo M.D., Sandra Ordaz CRNA (Anesthesia Staff), Makayla Vaughn RN Referring MD: Moustapha Restrepo Medicines: Monitored Anesthesia Care Complications: No immediate complications. Estimated Blood Loss: Estimated blood loss: none. Procedure: Pre-Anesthesia Assessment: - Prior to the procedure, a History and Physical was performed, and patient medications and allergieswere reviewed. The patient is competent. The risks and benefits of the procedure and the sedation optionsand risks were discussed with the patient. All questions were answered and informed consent was obtained. Patient identification and proposed procedure were verified by the physician, the nurse and the device processing engineer in the procedure room. Mental Status Examination: alert and oriented. Airway Examination: normal oropharyngeal airway and neck mobility. Respiratory Examination: clear to auscultation. CV Examination: normal. Prophylactic Antibiotics: The patient does not require prophylactic antibiotics. Prior Anticoagulants: The patient has taken noprevious anticoagulant or antiplatelet agents. ASA Grade Assessment: III - A patient with severe systemic disease. After reviewing the risks and benefits, the patient was deemed in satisfactory condition toundergo the procedure. The anesthesia plan was to usemonitored anesthesia care (MAC). Immediately prior to administration of medications, the patient was re-assessed for adequacy to receive sedatives. The heart rate, respiratory rate, oxygen saturations,blood pressure, adequacy of pulmonary ventilation, and response to care were monitored throughout the procedure. The physical status of the patient was re-assessed after the procedure. - The risks and benefits of the procedure and the sedation options and risks were discussed with the patient. All questions were answered and informed consent was obtained. After I obtained informed consent, the scope waspassed under direct vision. Throughout the procedure, the patient's blood pressure, pulse, and oxygensaturations were monitored continuously. The scope was passedunder direct vision. The Colonoscope was introducedthrough the anus and advanced to the the cecum, identifiedby appendiceal orifice and ileocecal valve. The colonoscopy was performed without difficulty. The patient tolerated the procedure well. The quality of the bowel preparation was adequate. The bowel preparation used was SUPREP. Bowel prep was administered using a split dose. Findings: Non-bleeding internal hemorrhoids were found during retroflexion. The hemorrhoids were mild and small. The exam was otherwise without abnormality. Impression: - Non-bleeding internal hemorrhoids. - The examination was otherwise normal. - No specimens collected. Recommendation: - Take Sitz baths Daily as needed. - Preparation H suppository: Insert rectally as necessary. - Repeat colonoscopy in 10 years for screeningpurposes. Procedure Code(s): --- Professional --- 44384, Colonoscopy, flexible; diagnostic, including collection of specimen(s) by brushing or washing,when performed (separate procedure) Diagnosis Code(s): --- Professional --- K64.8, Other hemorrhoids D50.9, Iron deficiency anemia, unspecified CPT copyright 2017 [employer]. All rights reserved. The codes documented in this report are preliminary and upon drill hand reviewmay be revised to meet current compliance requirements. Electronically signed by Aram Lo M.D. Aram Lo M.D. 05/14/2020 11:47:40 AM Number of Addenda: 0 Note Initiated On: 05/14/2020 10:55 AM Aram Lo MD ENDOSCOPY PROCEDURES Fi nal Result * Hepatitis panel, acute (07/21/2017 11:09 AM METAL HARDENER) Hep A IgM Negative Negative [facility] Hep B core IgM Negative Negative [facility] Hep C Ab Negative Negative [facility] HepBsAg Negative Negative [facility] Blood specimen (specimen) 07/21/2017 11:09 AM METAL HARDENER 07/21/2017 2:16 PM METAL HARDENER Narrative [facility] - 07/21/2017 2:54 PM METAL HARDENER us Linwood Bernal MD LAB MICROBIOLOGY - GENE RAL ORDERABLES Final Result [facility]OL[facility] [id number] [facility] Department [place] [address] from Last 3 Months or Most Recently Relevant to Health Maintenance Advance Directives For more information, please contact: [phone] * Full Code (Latest Code Status on File) Date Activated Date Inactivated Comments 10/06/2017 11:34 AM 10/07/2017 7:24 PM * Full Code Date Activated Date Inactivated Comments 07/21/2017 8:20 PM 07/23/2017 4:45 PM Care Teams Billing Control Clerk Relationship Specialty Start Date End Date Moustapha Restrepo MD [address] [place] [address] PCP - General Internal Medicine 06/13/18 Aram Lo MD [address] [place] [address] Consulting Physician Gastroenterology 01/20/19
[2025-04-03 14:25] LABS: Add Urine Microscopic? YES; Appearance Urine Cloudy (Clear); Glucose Urine UA Negative (Negative); Leukocyte Esterase Ur 3+ LEU/UL (Negative); Nitrate Urine Negative (Negative); Non Pathogenic Casts 0-2; Specific Grav Ur 1.011 (1.001-1.035)
--- OUTSIDE RECORDS SUMMARY | 2025-04-03 15:08 | XMS_ITS | Encounter Summary ---
Author Organization [facility] Address [address] [place] [address] Phone Care Team Providers Care Foreign Service Officer Name Role Phone Chris Hebert MD Unavailable [phone] Moustapha Restrepo MD Primary Care Provider Connie Castro MD Unavailable Dorys Gunter MD Unavailable [phone] Stephan Hinton DO Unavailable Aram Lo MD Unavailable [phone] Kate Poole NP Unavailable [phone] Virgil Riddle MD Unavailable Johana Uribe MD PhD Unavailable Luis Krause MD Unavailable [phone] Encounter Details Date Type Department Care Team (Late st Contact Info) Description 10/12/2018 Social Work [facility] Oncology [address] [address] Stacey Judd, [address] [place] [address] Social History Tobacco Use Types Packs/Day Years Used Date Smoking Tobacco: Never Smokeless Tobacco: Never Alcohol Use Standard Drinks/Week Comments No 0 (1 standard drink = 0.6 oz pur e alcohol) Comments No Sex and Gender Information Value Date Recorded Sex Assigned at Not on file Legal Sex Female 3:44 AM TRACK WALKER Gender Identity Not on file Sexual Orientation Straight 05/07/2024 1: 18 PM CDT documented as of this encounter Plan of Treatment Not on file documented as of this encounter Visit Diagnoses Not on filedocumented in this encounter Care Teams Foreign Service Officer Relationship Specialty Start Date End Date Moustapha Restrepo MD [address] [place] [address] PCP - General Internal Medicine 06/13/18 Chris Hebert MD [address] [place] [address] Consulting Physician Medical Oncology 07/23/17 04/13/21 [place] [address] [address] Consulting Physician Endocrinology Diabetes & Metabolism 01/20/19 06/11/19 [place] [address] [address] Consulting Physician Radiation Oncology 01/20/19 [place] [address] [address] Surgeon Otolaryngology 01/20/19 06/11/19 [place] [address] [address] Consulting Physician Gastroenterology 01/20/19 [place] [address] [place] [id number] Nurse Practitioner Otolaryngology 06/12/19 04/14/21 [place] [address] [address] Consulting Physician Otolaryngology 10/12/20 02/19/22 Johana Uribe [place] PhD [address] [id number] Medical Oncologist/Hematologi st Medical Oncology 04/14/21 03/14/22 [place] [address] [address] Consulting Physician Radiation Oncology 04/14/21 documented as of this encounter
--- OUTSIDE RECORDS SUMMARY | 2025-04-03 15:08 | XMS_ITS | Encounter Summary ---
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
--- OUTSIDE RECORDS SUMMARY | 2025-04-03 15:08 | XMS_ITS | Encounter Summary ---
Author Organization [facility] Address [address] [place] [address] Phone Care Team Providers Care Automatic Silk Screen Printer Name Role Phone Chris Hebert MD Unavailable [phone] Moustapha Restrepo MD Primary Care Provider [phone] Moustapha Restrepo MD Primary Care Provider Connie Castro MD Unavailable Dorys Gunter MD Unavailable [phone] Stephan Hinton DO Unavailable Aram Lo MD Unavailable Kate Poole NP Unavailable [phone] Virgil Riddle MD Unavailable Johana Uribe MD PhD Unavailable Luis Krause MD Unavailable [phone] Encounter Details Date Type Department Care Team (Late st Contact Info) Description 06/05/2018 Social Work [facility] Oncology [address] [place] [id number] Stacey Judd, [address] 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 Sex: female (home) Address: [address] [place], [place] [id number] PCP: Moustapha Restrepo baby formula worker followed up to determine if patient is still on Rituxan to determine if she will needto renew her medication assistance. I will remain available to assist as needed. MEL Holliday ICATION OPERATIONS ENGINEER documented in this encounter Plan of Treatment Not on file documented as of this encounter Visit Diagnoses Not on filedocumented in this encounter Care Teams Automatic Silk Screen Printer Relationship Specialty Start Date End Date Moustapha Restrepo MD [address] [place] [address] PCP - General Internal Medicine 11/23/17 06/12/18 Moustapha Restrepo MD [address] [place] [address] PCP - General Internal Medicine 06/13/18 Chris Hebert MD [address] [place] [address] Consulting Physician Medical Oncology 07/23/17 04/13/21 [place] [address] [address] Consulting Physician Endocrinology Diabetes & Metabolism 01/20/19 06/11/19 [place] [address] [address] Consulting Physician Radiation Oncology 01/20/19 [place] [address] [address] Surgeon Otolaryngology 01/20/19 06/11/19 [place] [address] [address] Consulting Physician Gastroenterology 01/20/19 Kate Poole, VIJAYA [address] [place] [address] Nurse Practitioner Otolaryngology 06/12/19 04/14/21 [place] [address] [address] Consulting Physician Otolaryngology 10/12/20 02/19/22 [place]ribe [place] PhD [address] [address] Medical Oncologist/Hematologi st Medical Oncology 04/14/21 03/14/22 [place] [address] [address] Consulting Physician Radiation Oncology 04/14/21 documented as of this encounter
--- OUTSIDE RECORDS SUMMARY | 2025-04-03 15:08 | XMS_ITS | Encounter Summary ---
Author Organization [facility] Address [address] [place] [address] Phone Care Team Providers Care Clinical Application Consultant Name Role Phone Chris Hebert MD Unavailable [phone] Moustapha Restrepo MD Primary Care Provider Moustapha Restrepo MD Primary Care Provider Connie Castro MD Unavailable Dorys Gunter MD Unavailable [phone] Stephan Hinton DO Unavailable Aram Lo MD Unavailable [phone] Kate Poole NP Unavailable Virgil Riddle MD Unavailable Johana Uribe MD PhD Unavailable Luis Krause MD Unavailable [phone] Encounter Details Date Type Department Care Team (Late st Contact Info) Description 01/03/2018 Social Work [facility] Oncology [address] [address] Stacey Judd, [address] 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 Sex: female (home) Address: [address] [place], [place] [phone] PCP: Moustapha Restrepo Received a call from [employer] reporting they need an updated application for the patient. Per rep, the initial application was denied due to incorrect primary diagnosis. SW updated and corrected application and sent to [employer]. I will remain available to assist as needed. MEL Holliday documented in this encounter Plan of Treatment Not on file documented as of this encounter Visit Diagnoses Not on filedocumented in this encounter Care Teams Clinical Application Consultant Relationship Specialty Start Date End Date Moustapha Restrepo MD [address] [place] [address] PCP - General Internal Medicine 11/23/17 06/12/18 Moustapha Restrepo MD [address] [place] [address] PCP - General Internal Medicine 06/13/18 Chris Hebert MD [address] [place] [address] Consulting Physician Medical Oncology 07/23/17 04/13/21 [place] [address] [address] Consulting Physician Endocrinology Diabetes & Metabolism 01/20/19 06/11/19 [place] [address] [address] Consulting Physician Radiation Oncology 01/20/19 [place] [address] [address] Surgeon Otolaryngology 01/20/19 06/11/19 [place] [address] [address] Consulting Physician Gastroenterology 01/20/19 Kate Poole, VIJAYA [address] [address] Nurse Practitioner Otolaryngology 06/12/19 04/14/21 [place] [address] [address] Consulting Physician Otolaryngology 10/12/20 02/19/22 Johana Uribe [place] PhD [address] [address] Medical Oncologist/Hematologi st Medical Oncology 04/14/21 03/14/22 [place] [address] [place] [address] Consulting Physician Radiation Oncology 04/14/21 documented as of this encounter
--- OUTSIDE RECORDS SUMMARY | 2025-04-03 15:08 | XMS_ITS | Clinical Summary ---
Author Organization [facility] Address [address] [place] [address] Care Team Providers Care Training Development Specialist Name Role Phone Moustapha Restrepo MD Primary Care Provider [phone] Aram Lo MD Unavailable [phone] Allergies No known active allergies Medications SUMAtriptan [...] (04/29/2020): Added automatically from request for surgery [id number] Epistaxis 02/15/2019 Assessment & Plan (02/15/2019 12:55 [...] 09/10/2017 Assessment & Plan (09/10/2017 6:19 PM INSPECTOR PACKAGER): Symptomatic. May be due to hemorrhoids vs [...] recommended. Assessment & Plan (09/10/2017 6:24 PM INSPECTOR PACKAGER): Symptomatic. She history of fibromyalgia and thyroid cancer. May be due to PUD. Erosive Esophagitis is a possibility as well. Plan EGD recommended for further evaluation. Abnormal laboratory test 07/22/2017 Fibromyalgia 07/22/2017 Assessment & Plan (05/07/2024 1:53 PM CDT): Chronic, stable. Continue pregabalin 75 mg twice a day Assessment & Plan (07/22/2017 3:56 PM INSPECTOR PACKAGER): Continue Elavil Hypothyroidism 07/22/2017 Assessment & Plan [...] 0.5 Assessment & Plan (07/05/2021 12:56 PM INSPECTOR PACKAGER): Thyroid function tests, including TSH and free T4 were requested Will adjust dose of Levothyroxine accordingly . If there is a need to make changes, will recheck levels in 2-3 months. Instructions to patient on taking medication properly : in the morning, on an empty stomach , 1 h part from food and/or other meds. Assessment & Plan (08/27/2018 4:15 PM INSPECTOR PACKAGER): Will check TSH and free T4 Will [...] taken. Assessment & Plan (07/22/2017 3:56 PM INSPECTOR PACKAGER): Continue Synthroid Thrombocytopenia 07/22/2017 Assessment & Plan (07/22/2017 3:58 PM INSPECTOR PACKAGER): Unknown etiology Hepatitis panel negative CBC, CMP [...] TG Assessment & Plan (07/05/2021 12:56 PM INSPECTOR PACKAGER): No evidence of recurrence, as per last thyroid ultrasound done to a few weeks. Continue monitoring TG levels Keep TSH in the lower range of normal Assessment & Plan (08/27/2018 4:14 PM INSPECTOR PACKAGER): Keep TSH around 0.5 Monitor TG levels Assessment & Plan (06/18/2018 7:34 AM INSPECTOR PACKAGER): Patient has a history of T2 N0 [...] on file Legal Sex Female 3:44 AM INSPECTOR PACKAGER Gender Identity Not on file Sexual Orientation [...] Comments Blood Pressure 146/85 06/28/2024 8:53 AM INSPECTOR PACKAGER Pulse 80 06/28/2024 8:53 AM INSPECTOR PACKAGER Temperature 36.8 C (98.2 F) 06/04/2024 3:21 PM INSPECTOR PACKAGER Respiratory Rate 17 05/07/2024 1:20 PM CDT Oxygen Saturation 100% 06/28/2024 8:53 AM INSPECTOR PACKAGER Inhaled Oxygen Concentration - - Weight 79.4 kg (175 lb 1.6 oz) 06/04/2024 3:21 P M INSPECTOR PACKAGER Height 165.1 cm (5' 5) 06/04/2024 3:21 PM INSPECTOR PACKAGER Body Mass Index 29.14 06/04/2024 3:21 PM INSPECTOR PACKAGER Plan of Treatment Health Maintenance Due Date [...] Read Routine (OP Routine) 06/17/2024 3:22 PM INSPECTOR PACKAGER Mass of left breast, unspecified quadrant COLONOSCOPY 05/14/2020 10:55 AM CDT HEPATITIS PANEL, ACUTE Routine 07/21/2017 11:09 AM INSPECTOR PACKAGER from Last 3 Months or Most Recently Relevant to Health Maintenance Results * Diagnostic Mammogram Bilateral W Jarett (06/17/2024 3:22 PM INSPECTOR PACKAGER) Anatomical Region Laterality Modality Breast Bilateral Mammography 06/17/2024 4:23 PM INSPECTOR PACKAGER Impressions 06/17/2024 4:23 PM INSPECTOR PACKAGER 1. No evidence of malignancy in either [...] Leticia Alvarado M.D. Narrative 06/17/2024 4:23 PM INSPECTOR PACKAGER EXAMINATION: BILATERAL DIGITAL DIAGNOSTIC MAMMOGRAM INCLUDING CAD [...] LEFT axilla was performed by a trained party demonstrator and Dr. Alvarado. BREAST PARENCHYMAL COMPOSITION: There [...] LEFT axilla was performed by a trained party demonstrator and Dr. Alvarado. BREAST PARENCHYMAL COMPOSITION: There [...] Lo MD - 05/14/2020 10:55 AM CDT [facility] Endoscopy Lab Patient Name: Dannielle Arora Procedure [...] by the physician, the nurse and the transmission technician in the procedure room. Mental Status Examination: [...] for screeningpurposes. Procedure Code(s): --- Professional --- 11665, Colonoscopy, flexible; diagnostic, including collection of specimen(s) by brushing or washing,when performed (separate procedure) Diagnosis Code(s): --- Professional --- K64.8, Other hemorrhoids D50.9, Iron deficiency anemia, unspecified CPT copyright 2017 [employer]. All rights reserved. The codes documented in this report are preliminary and upon customer relations representative reviewmay be revised to meet current compliance requirements. Electronically signed by Aram Lo M.D. Aram Lo M.D. 05/14/2020 11:47:40 AM Number of Addenda: 0 Note Initiated On: 05/14/2020 10:55 AM Aram Lo MD ENDOSCOPY PROCEDURES Fi nal Result * Hepatitis panel, acute (07/21/2017 11:09 AM INSPECTOR PACKAGER) Hep A IgM Negative Negative [facility] Hep B core IgM Negative Negative [facility] Hep C Ab Negative Negative [facility] HepBsAg Negative Negative [facility] Blood specimen (specimen) 07/21/2017 11:09 AM INSPECTOR PACKAGER 07/21/2017 2:16 PM INSPECTOR PACKAGER Narrative [facility] - 07/21/2017 2:54 PM INSPECTOR PACKAGER us Linwood Bernal MD LAB MICROBIOLOGY - GENE RAL ORDERABLES Final Result [facility] [address] [facility] Department [place] [address] from Last 3 Months or Most Recently Relevant to Health Maintenance Advance Directives For more information, please contact: [phone] * Full Code (Latest Code Status on File) Date Activated Date Inactivated Comments 10/06/2017 11:34 AM 10/07/2017 7:24 PM * Full Code Date Activated Date Inactivated Comments 07/21/2017 8:20 PM 07/23/2017 4:45 PM Care Teams Training Development Specialist Relationship Specialty Start Date End Date Moustapha Restrepo MD [address] [place] [address] PCP - General Internal Medicine 06/13/18 Aram Lo MD [address] [place] [address] Consulting Physician Gastroenterology 01/20/19
[2025-04-03] MEDS: SULFAMETHOXAZOLE/TRIMETHOPRIM 800/160 MG DS TABLET 2 TAB PO (15:41)
[2025-04-03 15:55] VITALS: BP 118/62; PULSE 67; RESP 16; TEMP 37.1; O2SAT 98
== END 2025-04-03 15:56 | disposition home or self-care (01) ==
PROVIDERS: Emergency Provider Registered Nurse
DX: M54.32 Sciatica, left side (principal); N39.0 Urinary tract infection, site not specified; Z85.850 Personal history of malignant neoplasm of thyroid
CPT/HCPCS: 72131; 81001; 87086; 96372; 99284; A9270; J1885; J7512